=== PATIENT | male | born 1955 | race Caucasian/White ===

== ENCOUNTER 2022-06-16 10:41 | Emergency (ER) | payer OTHER ==
[~2022-06-16] VITALS: Ht 175.3 cm; Wt 99.8 kg
--- NOTE | 2022-06-16 11:01 | NUR ---
C/O LEFT FOOT PAIN X 2 DAYS. SWELLING IN MEDIAL ASPECT NOTED. PT STATES "I FELL ON IT 1 YEAR AGO". PT ASSISTED TO BED VIA WHEELCHAIR. TRANSFERED TO BED. AWAITING MD ORDERS.
--- NOTE | 2022-06-16 11:10 | NUR ---
DR. ZIMMER AT BEDSIDE.
[2022-06-16] MEDS ORDERED: KETOROLAC TROMETHAMINE INJ 30 MG/ML VIAL ONE (11:18)
[2022-06-16] MEDS ORDERED: KETOROLAC TROMETHAMINE INJ 30 MG/ML VIAL IM ONE (11:30)
--- NOTE | 2022-06-16 12:38 | NUR ---
x ray of foot taken
[2022-06-16] MEDS ORDERED: KETO10TA2 PO (12:53)
[2022-06-16 13:07] VITALS: BP 134/74
== END 2022-06-16 13:08 | disposition home or self-care (01) ==
LOC: ER 11:00
DX: M79.675 Pain in left toe(s) (principal); I10 Essential (primary) hypertension; Z79.899 Other long term (current) drug therapy
CPT/HCPCS: 99283; 96372; 73630; J1885